=== PATIENT | male | born 1985 | race Two or more races ===

== ENCOUNTER 2017-09-01 18:01 | Emergency (ER) | payer SELFPAY ==
[2017-09-01] MEDS: HYDROcodone/APAP 5/325MG 1 TAB TABLET PO (20:20)
== END 2017-09-01 20:23 | disposition home or self-care (01) ==
LOC: ER 18:01
DX: S43.101A Unspecified dislocation of right acromioclavicular joint, initial encounter (principal); V89.9XXA Person injured in unspecified vehicle accident, initial encounter; Y93.89 Activity, other specified; Y99.8 Other external cause status; Y92.89 Other specified places as the place of occurrence of the external cause
CPT/HCPCS: 73030; 99284